=== PATIENT | female | born 1960 | race Hispanic/Latino ===

== ENCOUNTER 2017-05-01 15:09 | Emergency (ER) | payer MEDICARE ==
[~2017-05-01 15:09] MED LIST: AMLO10TA4 PO; ATOR10 PO; BISA10S PR; FERR325T22 PO; FLUT44HFA IH; HYDR-4064 PO; LEVO100T12 PO; LISI10TA7 PO; PRAV20TA4 PO; SERT100T12 PO
[2017-05-01] MEDS ORDERED: MORPHINE SULFATE 4 MG/1ML SYG ONE (15:33)
[2017-05-01 15:46] LABS: BASOPHILS % (AUTO) 0.9 % (0.0-5.0); EOSINOPHILS % (AUTO) 0.1 % (0.0-8.0); HEMATOCRIT 35.9 % (36-48); LYMPHOCYTES % (AUTO) 37.9 % (21.0-51.0); MEAN CORPUSCULAR HEMOGLOBIN 29.9 pg (27.0-33.0); MEAN CORPUSCULAR HGB CONC 33.3 g/dL (32.0-36.0); MEAN CORPUSCULAR VOLUME 89.8 fL (79-99); MONOCYTES % (AUTO) 5.4 % (3.0-13.0); NEUTROPHILS % (AUTO) 55.7 % (40.0-77.0); PLATELET COUNT (AUTO) 245 K/uL (130-400); RED BLOOD CELL COUNT(AUTO) 3.99 MIL/uL (4.00-5.50); RED CELL DISTRIBUTION WIDTH 16.8 % (11.0-15.5); WHITE BLOOD COUNT (AUTO) 7.4 K/uL (4.8-10.8)
[2017-05-01 16:00] LABS: ALBUMIN 2.5 g/dL (3.5-5.0); BILIRUBIN,TOTAL 0.5 mg/dL (0.2-1.0); CREATININE 0.9 mg/dL (0.5-1.5); TOTAL PROTEIN, SERUM 7.6 g/dL (6.0-8.3)
[2017-05-01 16:15] LABS: POTASSIUM 2.9 mmol/L (3.5-5.1)
[2017-05-01] MEDS ORDERED: BISACODYL 5 MG TABLET.DR PO ONE (18:22)
[2017-05-01] MEDS ORDERED: BISACODYL 10 MG SUPP.RECT RC ONE (18:24)
[2017-05-01] MEDS ORDERED: MORPHINE SULFATE 8 MG/ML VIAL ONE (22:26)
== END 2017-05-01 23:17 | disposition home or self-care (01) ==
LOC: EDH 15:09
DX: L89.151 Pressure ulcer of sacral region, stage 1 (principal); L89.619 Pressure ulcer of right heel, unspecified stage; E11.22 Type 2 diabetes mellitus with diabetic chronic kidney disease; N18.6 End stage renal disease; I50.9 Heart failure, unspecified; I25.10 Atherosclerotic heart disease of native coronary artery without angina pectoris; E78.5 Hyperlipidemia, unspecified; Z79.4 Long term (current) use of insulin
CPT/HCPCS: 36415; 74018; 80053; 82948; 85025; 96372 ×2; 99285; J2270 ×2

== ENCOUNTER 2017-06-05 18:38 | Emergency (ER) | payer MEDICARE ==
[2017-06-05] MEDS ORDERED: ONDANSETRON ODT 4 MG TAB ONE (19:27)
[2017-06-05] MEDS ORDERED: MORPHINE SULFATE 4 MG/1ML SYG ONE (19:28)
[2017-06-05 19:45] LABS: EOSINOPHILS % (AUTO) 0.1 % (0.0-8.0); HEMATOCRIT 32.7 % (36-48); LYMPHOCYTES % (AUTO) 33.7 % (21.0-51.0); MEAN CORPUSCULAR HEMOGLOBIN 31.1 pg (27.0-33.0); MEAN CORPUSCULAR HGB CONC 34.7 g/dL (32.0-36.0); MEAN CORPUSCULAR VOLUME 89.7 fL (79-99); MONOCYTES % (AUTO) 10.1 % (3.0-13.0); NEUTROPHILS % (AUTO) 55.1 % (40.0-77.0); PLATELET COUNT (AUTO) 262 K/uL (130-400); RED BLOOD CELL COUNT(AUTO) 3.65 MIL/uL (4.00-5.50); RED CELL DISTRIBUTION WIDTH 14.3 % (11.0-15.5); WHITE BLOOD COUNT (AUTO) 8.3 K/uL (4.8-10.8)
[2017-06-05 19:52] LABS: CREATININE 1.6 mg/dL (0.5-1.5)
[2017-06-05 19:57] LABS: POTASSIUM 2.7 mmol/L (3.5-5.1)
[2017-06-05] MEDS ORDERED: POTASSIUM CHLORIDE 20 MEQ ERTAB PO ONE (20:10)
== END 2017-06-05 21:19 | disposition home or self-care (01) ==
LOC: EDH 18:38
DX: G89.29 Other chronic pain (principal); G54.6 Phantom limb syndrome with pain; E87.6 Hypokalemia; I25.10 Atherosclerotic heart disease of native coronary artery without angina pectoris; I50.9 Heart failure, unspecified; E11.22 Type 2 diabetes mellitus with diabetic chronic kidney disease; N18.9 Chronic kidney disease, unspecified; E78.5 Hyperlipidemia, unspecified; Z79.4 Long term (current) use of insulin
CPT/HCPCS: 36415; 71045; 80048; 85025; 96372; 99285; J2270